=== PATIENT | male | born 1970 | race American Indian/Alaskan Native ===

== ENCOUNTER 2017-09-29 12:18 | Emergency (ER) | payer BC ==
[2017-09-29 12:45] VITALS: BP 145/91
[2017-09-29] MEDS ORDERED: PERCOCET 5/325 PO ONE (13:58)
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
[2017-09-29] MEDS ORDERED: FLEXERIL PO ONE (13:59)
== END 2017-09-29 16:16 | disposition home or self-care (01) ==
LOC: ED 12:18
DX: M62.830 Muscle spasm of back (principal); M25.561 Pain in right knee; M25.562 Pain in left knee; M79.671 Pain in right foot; V49.40XA Driver injured in collision with unspecified motor vehicles in traffic accident, initial encounter; Y93.89 Activity, other specified; Y99.8 Other external cause status; Y92.410 Unspecified street and highway as the place of occurrence of the external cause
CPT/HCPCS: 99282